=== PATIENT | male | born 1960 | race American Indian/Alaskan Native ===

== ENCOUNTER 2020-01-11 13:11 | Observation (INO) | payer MEDICAID ==
[2020-01-11] MEDS ORDERED: Sodium Chloride 0.9% 1,000 ML IV SCH ×3 (13:15→17:00)
--- NOTE | 2020-01-11 13:20 | EDM.PDOC ---
ED HPI GENERAL MEDICAL PROBLEM - General Chief Complaint: Gastrointestinal Problem Stated Complaint: [facility] Time Seen by Provider: 01/11/20 13:20 Source of Information: Reports: Patient History Limitations: Reports: No Limitations - History of Present Illness INITIAL COMMENTS - FREE TEXT/NARRATIVE: pt got up this am and he felt normal. Shortly after that he felt severe vertigo. That went away and later in the am return and was very severe. He began to vomit. He is feeling like the whole room is whirling when he opens his eyes. Onset: Today, Sudden Duration: Hour(s): Location: Reports: Head, Abdomen, Other (pt started to vomit mid morning when the vertigo go severe. ) Associated Symptoms: Reports: Nausea/Vomiting, Weakness, Other ( vertigo. ) - Related Data Allergies Allergy/AdvReac Type Severity Reaction Status Date / Time ibuprofen AdvReac Other Verified 01/11/20 13:13 Home Meds: Home Meds Aspirin [Halfprin] 81 mg PO DAILY 01/11/20 [History] ED ROS GENERAL - Review of Systems Review Of Systems: See Below Constitutional: Reports: Weakness, Decreased Appetite HEENT: Reports: Vertigo Respiratory: Reports: No Symptoms Cardiovascular: Reports: No Symptoms Endocrine: Reports: No Symptoms GI/Abdominal: Reports: Nausea, Vomiting : Reports: No Symptoms Musculoskeletal: Reports: No Symptoms ED EXAM, GI/ABD - Physical Exam Exam: See Below Text/Narrative:: pt arrived by ambulance with marked vertigo and vomiting. He had persistent vertigo. 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 He gives a history in the last week of hearloss in the left ear. Exam Limited By: No Limitations General Appearance: Alert, Moderate Distress Ears: Other ( rt drum is red and has fluid behind it, left drum has no redness but there is fluid present. ) Nose: Normal Inspection Throat/Mouth: Normal Inspection Head: Atraumatic Neck: Normal Inspection Respiratory/Chest: No Respiratory Distress Cardiovascular: Regular Rate, Rhythm, Tachycardia GI/Abdominal Exam: Other ( no tenderness present. ) (Male) Exam: Deferred Rectal (Males) Exam: Deferred Back Exam: Normal Inspection Extremities: Normal Inspection Neurological: Alert, Oriented, Normal Cognition Course - Vital Signs Last Recorded V/S: Last Vital Signs Temp 35.4 C L 01/11/20 13:15 Pulse 71 01/11/20 15:43 Resp 18 01/11/20 13:15 BP 134/87 01/11/20 15:43 Pulse Ox 96 01/11/20 14:10 - Orders/Labs/Meds Orders: Active Orders 24 hr Category Date Time Status EKG Documentation Completion [RC] ASDIRECTED Care 01/11/20 13:14 Active Sodium Chloride 0.9% [Normal Saline] 1,000 ml Med 01/11/20 13:15 Active IV ASDIRECTED Sodium Chloride 0.9% [Normal Saline] 1,000 ml Med 01/11/20 14:15 Active IV ASDIRECTED EKG 12 Lead [EK] Routine Ther 01/11/20 13:14 Ordered Medication Orders Sodium Chloride (Normal Saline) 1,000 mls @ 999 mls/hr IV ASDIRECTED NIDA Last Admin: 01/11/20 13:38 Dose: 999 mls/hr Documented by: EUGENE Sodium Chloride (Normal Saline) 1,000 mls @ 999 mls/hr IV ASDIRECTED NIDA Last Admin: 01/11/20 14:56 Dose: 999 mls/hr Documented by: [id number] Labs: Laboratory Tests 01/11/20 01/11/20 01/11/20 Range/Units 13:25 13:25 16:03 WBC 9.9 (4.5-11.0) K/uL RBC 5.71 (4.30-5.90) M/uL Hgb 16.0 H D (12.0-15.0) g/dL Hct 48.0 (40.0-54.0) % MCV 84 (80-98) fL MCH 28 (27-31) pg MCHC 33 (32-36) % Plt Count 199 (150-400) K/uL Neut % (Auto) 75 H (36-66) % Lymph % (Auto) 16 L (24-44) % [place] % (Auto) 7 H (2-6) % Eos % (Auto) 2 (2-4) % Baso % (Auto) 0 (0-1) % Sodium 141 (140-148) mmol/L Potassium 3.8 (3.6-5.2) mmol/L Chloride 105 (100-108) mmol/L Carbon Dioxide 25 (21-32) mmol/L Anion Gap 10.7 (5.0-14.0) mmol/L BUN 16 (7-18) mg/dL Creatinine 1.0 (0.8-1.3) mg/dL Est Cr Clr Drug Dosing 89.89 mL/min Estimated GFR (MDRD) > 60 (>60) Glucose 209 H (74-106) mg/dL Calcium 8.7 (8.5-10.1) mg/dL Total Bilirubin 0.6 (0.2-1.0) mg/dL AST 28 (15-37) U/L ALT 44 (12-78) U/L Alkaline Phosphatase 105 (46-116) U/L Total Protein 7.2 (6.4-8.2) g/dL Albumin 3.9 (3.4-5.0) g/dL Globulin 3.3 (2.3-3.5) g/dL Albumin/Globulin Ratio 1.2 (1.2-2.2) Urine Color Yellow (YELLOW) Urine Appearance Clear (CLEAR) Urine pH 7.0 (5.0-8.0) Ur Specific [place] 1.020 (1.008-1.030) Urine Protein Negative (NEGATIVE) mg/dL Urine Glucose (UA) 250 H (NEGATIVE) mg/dL Urine Ketones Negative (NEGATIVE) mg/dL Urine Occult Blood Negative (NEGATIVE) Urine Nitrite Negative (NEGATIVE) Urine Bilirubin Negative (NEGATIVE) Urine Urobilinogen 0.2 (0.2-1.0) EU/dL Ur Leukocyte Esterase Negative (NEGATIVE) Urine RBC Not seen (0-5) Urine WBC 0-5 (0-5) Ur Epithelial Cells Few Urine Bacteria Not seen Meds: Medications Generic Name Dose Route Start Last Admin Trade Name Freq PRN Reason Stop Dose Admin Sodium Chloride 1,000 mls @ 999 mls/hr 01/11/20 13:15 01/11/20 13:38 Normal Saline IV 999 mls/hr ASDIRECTED NIDA Administration Sodium Chloride 1,000 mls @ 999 mls/hr 01/11/20 14:15 01/11/20 14:56 Normal Saline IV 999 mls/hr ASDIRECTED NIDA Administration Discontinued Medications Generic Name Dose Route Start Last Admin Trade Name Freq PRN Reason Stop Dose Admin Ceftriaxone Sodium 1 gm/ 50 mls @ 100 mls/hr 01/11/20 14:43 01/11/20 15:06 Sodium Chloride IV 01/11/20 15:12 100 mls/hr ONETIME ONE Administration Meclizine HCl 25 mg 01/11/20 13:21 01/11/20 13:38 Antivert PO 01/11/20 13:22 25 mg ONETIME ONE Administration Meclizine HCl 25 mg 01/11/20 16:04 01/11/20 16:16 Antivert PO 01/11/20 16:05 25 mg ONETIME ONE Administration Ondansetron HCl 4 mg 01/11/20 16:04 01/11/20 16:16 Zofran IVPUSH 01/11/20 16:05 4 mg ONETIME ONE Administration - Re-Assessments/Exams Free Text/Narrative Re-Assessment/Exam: 01/11/20 17:04 cat scan of the head was normal. Departure - Departure Time of Disposition: 16:59 Disposition: Admitted As Inpatient 66 Condition: Fair Clinical Impression: Dysfunction of inner ear, Left serous otitis media, Dehydration - Discharge Information Referrals: PCP,None [Primary Care Provider] - Forms: ED Department Discharge Care Plan Goals: admi to Dr Worthy Sepsis Event Note (ED) - Focused Exam Vital Signs: Vital Signs Temp Pulse Resp BP Pulse Ox 01/11/20 15:43 71 134/87 01/11/20 14:10 75 141/83 H 96 01/11/20 13:15 35.4 C L 72 18 160/79 H 94 L 01/11/20 13:13 35.4 C L 72 18 160/79 H 94 L - My Orders Last 24 Hours: My Active Orders 01/11/20 13:14 EKG Documentation Completion [RC] ASDIRECTED EKG 12 Lead [EK] Routine 01/11/20 13:15 Sodium Chloride 0.9% [Normal Saline] 1,000 ml IV ASDIRECTED 01/11/20 14:15 Sodium Chloride 0.9% [Normal Saline] 1,000 ml IV ASDIRECTED - Assessment/Plan Last 24 Hours: My Active Orders 01/11/20 13:14 EKG Documentation Completion [RC] ASDIRECTED EKG 12 Lead [EK] Routine 01/11/20 13:15 Sodium Chloride 0.9% [Normal Saline] 1,000 ml IV ASDIRECTED 01/11/20 14:15 Sodium Chloride 0.9% [Normal Saline] 1,000 ml IV ASDIRECTED
[2020-01-11] MEDS ORDERED: Meclizine 25 MG Tab PO ONE ×2 (13:21→16:04)
--- NOTE | 2020-01-11 14:34 | CRLCT ---
INDICATION: Vertigo. TECHNIQUE: CT head without IV contrast. FINDINGS: No acute intracranial hemorrhage, edema or mass effect. Plate and screw fixation involving the floor of the right orbit, anterior wall of right maxillary sinus and medial wall of the right orbit with depression of the anterior wall of the right maxillary sinus consistent with prior fractures/trauma. Mildly displaced anterior and right nasal bone fracture could be an ununited old fracture. Clinical correlation recommended. Mild cerebral atrophy. Impression : No acute intracranial disease. Old fracture deformities involving the right medial orbit floor of the orbit as well as anterior wall of right maxillary sinus with plate and screw fixation. Mildly displaced right anterior nasal bone fracture could be an old ununited fracture. Please note that all CT scans at this facility use dose modulation, iterative reconstruction, and/or weight-based dosing when appropriate to reduce radiation dose to as low as reasonably achievable. Dictated by Chris Alcala MD @ Jan 11 2020 2:29PM Signed by Dr. Chris Alcala @ Jan 11 2020 2:33PM
[2020-01-11] MEDS ORDERED: cefTRIAXone 1 GM in Sodium Chloride 0.9% 50 ML IV ONE (14:43)
[2020-01-11] MEDS ORDERED: Ondansetron 4 MG/2 ML SDV IVPUSH ONE (16:04)
--- NOTE | 2020-01-11 18:01 | PCM.HP.2 ---
H&P History of Present Illness - General Date of Service: 01/11/20 Admit Problem/Dx: Admission Diagnosis/Problem Admission Diagnosis/Problem Vertigo Source of Information: Patient, Family, Provider, RN Notes Reviewed History Limitations: Reports: No Limitations - History of Present Illness Initial Comments - Free Text/Narative: Mr. Cowart is a 59-year-old gentleman who was admitted to observation status through the emergency department for management of vertigo with nausea and vomiting. Over the past few months he has had at least 3 other episodes of positional vertigo. This has been the worst with onset this morning. Symptoms persisted and he presented to the emergency department for further evaluation, CT scan of the head is unremarkable. He currently is unable to stand or ambulate and developed severe nausea vomiting with position changes. Has no other focal neurologic findings. - Related Data Allergies/Adverse Reactions: Allergies Allergy/AdvReac Type Severity Reaction Status Date / Time ibuprofen AdvReac Other Verified 01/11/20 13:13 Home Medications: Home Meds Aspirin [Halfprin] 81 mg PO DAILY 01/11/20 [History] Past Medical History HEENT History: Reports: None Gastrointestinal History: Reports: None Endocrine/Metabolic History: Reports: Obesity/BMI 30+ - Past Surgical History Head Surgeries/Procedures: Reports: None HEENT Surgical History: Reports: Eye Surgery, Other (See Below) Other HEENT Surgeries/Procedures: right eye socket GI Surgical History: Reports: Appendectomy Dermatological Surgical History: Reports: None Social & Family History - Tobacco Use Smoking Status *Q: Former Smoker Used Tobacco, but Quit: Yes Month/Year Tobacco Last Used: 07/29/2019 Second Hand Smoke Exposure: No - Caffeine Use Caffeine Use: Reports: Coffee, Soda, Tea - Recreational Drug Use Recreational Drug Use: No H&P Review of Systems - Review of Systems: Review Of Systems: See Below General: Reports: No Symptoms HEENT: Reports: Hearing Changes, Vertigo. Denies: Ear Pain, Eye Pain, Headaches, Sinus Congestion Pulmonary: Reports: No Symptoms Cardiovascular: Reports: No Symptoms Gastrointestinal: Reports: Nausea, Vomiting. Denies: Abdominal Pain, Black Stool, Bloody Stool, Constipation, Diarrhea, Difficulty Swallowing, Distension Genitourinary: Reports: No Symptoms Musculoskeletal: Reports: No Symptoms Skin: Reports: No Symptoms Psychiatric: Reports: No Symptoms Neurological: Reports: No Symptoms Hematologic/Lymphatic: Reports: No Symptoms Immunologic: Reports: No Symptoms Exam - Exam Exam: See Below - Vital Signs Vital Signs: Last Vital Signs Temp 95.8 F L 01/11/20 13:15 Pulse 83 01/11/20 17:19 Resp 18 01/11/20 13:15 BP 146/91 H 01/11/20 17:19 Pulse Ox 96 01/11/20 14:10 Weight: 235 lb - Exam Quality Assessment: DVT Prophylaxis General: Alert, Oriented, Cooperative, Moderate Distress HEENT: Conjunctiva Clear, Hearing Intact, Mucosa Moist & [place], Normal Nasal Septum, Posterior Pharynx Clear, Pupils Equal, Other (Right upward rotary nystagmus) Neck: Supple, Trachea Midline, +2 Carotid Pulse wo Bruit Lungs: Clear to Auscultation, Normal Respiratory Effort Cardiovascular: Regular Rate, Regular Rhythm, Normal S1, Normal S2. No: Systolic Murmur, Diastolic Murmur GI/Abdominal Exam: Soft, Non-Tender, No Organomegaly, No Distention Back Exam: Normal Inspection, Full Range of Motion Extremities: Non-Tender, No Pedal Edema Skin: Warm, Dry, Intact Neurological: Cranial Nerves Intact, Strength Equal Bilateral, Normal Speech, Normal Tone, Sensation Intact. No: Focal Deficit Neuro Extensive - Mental Status: Alert, Oriented x3, Normal Mood/Affect, Normal Cognition, Memory Intact - Patient Data Lab Results Last 24 hrs: Laboratory Results - last 24 hr 01/11/20 01/11/20 01/11/20 Range/Units 13:25 13:25 16:03 WBC 9.9 (4.5-11.0) K/uL RBC 5.71 (4.30-5.90) M/uL Hgb 16.0 H D (12.0-15.0) g/dL Hct 48.0 (40.0-54.0) % MCV 84 (80-98) fL MCH 28 (27-31) pg MCHC 33 (32-36) % Plt Count 199 (150-400) K/uL Neut % (Auto) 75 H (36-66) % Lymph % (Auto) 16 L (24-44) % [place] % (Auto) 7 H (2-6) % Eos % (Auto) 2 (2-4) % Baso % (Auto) 0 (0-1) % Sodium 141 (140-148) mmol/L Potassium 3.8 (3.6-5.2) mmol/L Chloride 105 (100-108) mmol/L Carbon Dioxide 25 (21-32) mmol/L Anion Gap 10.7 (5.0-14.0) mmol/L BUN 16 (7-18) mg/dL Creatinine 1.0 (0.8-1.3) mg/dL Est Cr Clr Drug Dosing 89.89 mL/min Estimated GFR (MDRD) > 60 (>60) Glucose 209 H (74-106) mg/dL Calcium 8.7 (8.5-10.1) mg/dL Total Bilirubin 0.6 (0.2-1.0) mg/dL AST 28 (15-37) U/L ALT 44 (12-78) U/L Alkaline Phosphatase 105 (46-116) U/L Total Protein 7.2 (6.4-8.2) g/dL Albumin 3.9 (3.4-5.0) g/dL Globulin 3.3 (2.3-3.5) g/dL Albumin/Globulin Ratio 1.2 (1.2-2.2) Urine Color Yellow (YELLOW) Urine Appearance Clear (CLEAR) Urine pH 7.0 (5.0-8.0) Ur Specific Chemult 1.020 (1.008-1.030) Urine Protein Negative (NEGATIVE) mg/dL Urine Glucose (UA) 250 H (NEGATIVE) mg/dL Urine Ketones Negative (NEGATIVE) mg/dL Urine Occult Blood Negative (NEGATIVE) Urine Nitrite Negative (NEGATIVE) Urine Bilirubin Negative (NEGATIVE) Urine Urobilinogen 0.2 (0.2-1.0) EU/dL Ur Leukocyte Esterase Negative (NEGATIVE) Urine RBC Not seen (0-5) Urine WBC 0-5 (0-5) Ur Epithelial Cells Few Urine Bacteria Not seen Result Diagrams: 01/11/20 13:25 01/11/20 13:25 Sepsis Event Note - Evaluation Sepsis Screening Result: No Definite Risk - Focused Exam Vital Signs: Vital Signs Temp Pulse Resp BP Pulse Ox 01/11/20 17:19 83 146/91 H 01/11/20 15:43 71 134/87 01/11/20 14:10 75 141/83 H 96 01/11/20 13:15 95.8 F L 72 18 160/79 H 94 L 01/11/20 13:13 95.8 F L 72 18 160/79 H 94 L *Q Meaningful Use (ADM) - VTE Risk Assess *Q Each Risk Factor Represents 1 Point: Age 41 - 59 years, Obesity ( BMI > 25 kg/ m2) Total Score 1 Point Risk Factors: 2 Each Risk Factor Represents 2 Points: None Total Score 2 Point Risk Factors: 0 Each Risk Factor Represents 3 Points: None Total Score 3 Point Risk Factors: 0 Each Risk Factor Represents 5 Points: None Total Score 5 Point Risk Factors: 0 Venous Thromboembolism Risk Factor Score *Q: 2 Problem List Initiated/Reviewed/Updated: Yes Orders Last 24hrs: Active Orders 24 hr Category Date Time Status Patient Status Manage Transfer [TRANSFER] Routine ADT 01/11/20 17:50 Ordered EKG Documentation Completion [RC] ASDIRECTED Care 01/11/20 13:14 Active Sodium Chloride 0.9% [Normal Saline] 1,000 ml Med 01/11/20 13:15 Active IV ASDIRECTED Sodium Chloride 0.9% [Normal Saline] 1,000 ml Med 01/11/20 14:15 Active IV ASDIRECTED Sodium Chloride 0.9% [Normal Saline] 1,000 ml Med 01/11/20 17:00 Active IV ASDIRECTED Resuscitation Status Routine Resus Stat 01/11/20 17:52 Ordered EKG 12 Lead [EK] Routine Ther 01/11/20 13:14 Ordered Medication Orders Sodium Chloride (Normal Saline) 1,000 mls @ 999 mls/hr IV ASDIRECTED ON LICENSE OF [facility] Last Admin: 01/11/20 13:38 Dose: 999 mls/hr Documented by: EUGENE Sodium Chloride (Normal Saline) 1,000 mls @ 999 mls/hr IV ASDIRECTED ON LICENSE OF [facility] Last Admin: 01/11/20 14:56 Dose: 999 mls/hr Documented by: GEO Sodium Chloride (Normal Saline) 1,000 mls @ 200 mls/hr IV ASDIRECTED ON LICENSE OF [facility] Assessment/Plan Comment:: ASSESSMENT AND PLAN BENIGN POSITIONAL VERTIGO-he has had previous episodes of this, but not this severe in the past. Currently unable to stand or walk, with severe nausea and vomiting. -Fluids for hydration -Medication for nausea as needed -If feeling somewhat better attempt otolith repositioning maneuvers in a.m. MAINTENANCE ISSUES -DVT prophylaxis; Lovenox 40 mg subcu daily -GI prophylaxis; not indicated -Nieves catheter; not indicated -Nutrition; regular diet -Nicotine dependence; not required CODE STATUS-FULL CODE ADMISSION STATUS-this patient will be admitted to observation status, expect no more than a one night hospital stay for evaluation and management of problems as outlined above. DISPOSITION-anticipate discharge to home after the hospital stay. PRIMARY CARE PROVIDER- - Mortality Measure Prognosis:: Good
[2020-01-11] MEDS ORDERED: Ondansetron 4 MG/2 ML SDV IV PRN (18:28)
[2020-01-11] MEDS ORDERED: Sodium Chloride 0.9% 10 ML Syringe FLUSH PRN (18:28)
[2020-01-11] MEDS ORDERED: Acetaminophen 325 MG Tab PO PRN (18:28)
[2020-01-11] MEDS ORDERED: LORazepam 2 MG/ML SDV IV PRN (18:28)
[2020-01-11] MEDS ORDERED: Polyethylene Glycol 3350 Powder 17 GM Packet PO PRN (18:28)
[2020-01-11] MEDS: Sodium Chloride 0.9% 1,000 ML IV SCH (19:15)
[2020-01-11] MEDS ORDERED: Enoxaparin 40 MG/0.4 ML Syringe SUBCUT SCH (21:00)
[2020-01-12] MEDS: Sodium Chloride 0.9% 1,000 ML IV SCH (02:39)
[2020-01-12] MEDS ORDERED: Aspirin 81 MG Tab.EC PO SCH (09:00)
--- NOTE | 2020-01-12 10:56 | PCM.DCSUM1 ---
Discharge Summary - Hospital Course Brief History: Mr. Cowart is a 59-year-old gentleman who was admitted through the emergency department to observation status with vertigo, nausea vomiting, and dehydration. - Discharge Data Discharge Date: 01/12/20 Discharge Disposition: Home, Self-Care 01 Condition: Fair - Referral to Home Health Primary Care Physician: PCP None - Discharge Diagnosis/Problem(s) (1) Nausea & vomiting SNOMED Code(s): 04571459 ICD Code: R11.2 - NAUSEA WITH VOMITING, UNSPECIFIED Status: Acute Current Visit: Yes (2) Benign positional vertigo SNOMED Code(s): 393455360 ICD Code: H81.10 - BENIGN PAROXYSMAL VERTIGO, UNSPECIFIED EAR Status: Acute Current Visit: Yes (3) Dehydration SNOMED Code(s): 22109148 ICD Code: E86.0 - DEHYDRATION Status: Acute Current Visit: Yes - Patient Summary/Data Hospital Course: Mr. Cowart is a 59-year-old gentleman who was admitted to observation status through the emergency department for management of vertigo with nausea and vomiting, and dehydration. Over the past few months he has had at least 3 other episodes of positional vertigo. This has been the worst with onset this morning. Symptoms persisted and he presented to the emergency department for further evaluation, CT scan of the head is unremarkable. He currently is unable to stand or ambulate and developed severe nausea vomiting with position changes. Has no other focal neurologic findings. On admission he was continued on IV fluids for hydration as well as medication as needed for management of nausea and vomiting. By the following morning he had improved significantly with resolution of vertigo, nausea and vomiting. He was instructed on otolith repositioning maneuvers and will be given written information concerning the s andres. Follow-up appointment will be scheduled with physical therapy for more instruction on repositioning maneuvers. Activity will be as tolerated and he will resume his usual diet. Follow-up appointment will be scheduled with Dr. Blake within 1 week as well as the appointment with physical therapy. - Patient Instructions Diet: Usual Diet as Tolerated Activity: As Tolerated Other/Special Instructions: Please schedule follow-up appointment with Dr. Blake within 1 week. Please schedule physical therapy appointment for evaluation and instruction concerning benign positional vertigo and otolith repositioning maneuvers. - Discharge Plan *PRESCRIPTION DRUG MONITORING PROGRAM REVIEWED*: Not Applicable *COPY OF PRESCRIPTION DRUG MONITORING REPORT IN PATIENT TICO: Not Applicable Home Medications: Home Meds Aspirin [Halfprin] 81 mg PO DAILY 01/11/20 [History] Patient Handouts: Vertigo, [id number], How to Perform the Kwabena Maneuver, Dizziness, [id number] - Discharge Summary/Plan Comment DC Time >30 min.: No - Patient Data Vitals - Most Recent: Last Vital Signs Temp 98 F 01/12/20 08:00 Pulse 76 01/12/20 08:00 Resp 18 01/12/20 08:00 BP 120/73 01/12/20 08:00 Pulse Ox 95 01/12/20 08:00 Weight - Most Recent: 208 lb I&O - Last 24 hours: Intake & Output 01/11/20 01/12/20 01/12/20 22:59 06:59 14:59 Intake Total 1928 450 Balance 1928 450 Lab Results - Last 24 hrs: Laboratory Results - last 24 hr 01/11/20 01/11/20 01/11/20 Range/Units 13:25 13:25 16:03 WBC 9.9 (4.5-11.0) K/uL RBC 5.71 (4.30-5.90) M/uL Hgb 16.0 H D (12.0-15.0) g/dL Hct 48.0 (40.0-54.0) % MCV 84 (80-98) fL MCH 28 (27-31) pg MCHC 33 (32-36) % Plt Count 199 (150-400) K/uL Neut % (Auto) 75 H (36-66) % Lymph % (Auto) 16 L (24-44) % [place] % (Auto) 7 H (2-6) % Eos % (Auto) 2 (2-4) % Baso % (Auto) 0 (0-1) % Sodium 141 (140-148) mmol/L Potassium 3.8 (3.6-5.2) mmol/L Chloride 105 (100-108) mmol/L Carbon Dioxide 25 (21-32) mmol/L Anion Gap 10.7 (5.0-14.0) mmol/L BUN 16 (7-18) mg/dL Creatinine 1.0 (0.8-1.3) mg/dL Est Cr Clr Drug Dosing 89.89 mL/min Estimated GFR (MDRD) > 60 (>60) Glucose 209 H (74-106) mg/dL Calcium 8.7 (8.5-10.1) mg/dL Total Bilirubin 0.6 (0.2-1.0) mg/dL AST 28 (15-37) U/L ALT 44 (12-78) U/L Alkaline Phosphatase 105 (46-116) U/L Total Protein 7.2 (6.4-8.2) g/dL Albumin 3.9 (3.4-5.0) g/dL Globulin 3.3 (2.3-3.5) g/dL Albumin/Globulin Ratio 1.2 (1.2-2.2) Urine Color Yellow (YELLOW) Urine Appearance Clear (CLEAR) Urine pH 7.0 (5.0-8.0) Ur Specific [place] 1.020 (1.008-1.030) Urine Protein Negative (NEGATIVE) mg/dL Urine Glucose (UA) 250 H (NEGATIVE) mg/dL Urine Ketones Negative (NEGATIVE) mg/dL Urine Occult Blood Negative (NEGATIVE) Urine Nitrite Negative (NEGATIVE) Urine Bilirubin Negative (NEGATIVE) Urine Urobilinogen 0.2 (0.2-1.0) EU/dL Ur Leukocyte Esterase Negative (NEGATIVE) Urine RBC Not seen (0-5) Urine WBC 0-5 (0-5) Ur Epithelial Cells Few Urine Bacteria Not seen Med Orders - Current: Current Medications Acetaminophen (Tylenol) 650 mg PO Q4H PRN PRN Reason: Pain (Mild 1-3)/fever Aspirin (Halfprin) 81 mg PO DAILY [facility] Last Admin: 01/12/20 08:15 Dose: 81 mg Documented by: Enoxaparin Sodium (Lovenox) 40 mg SUBCUT BEDTIME [facility] Last Admin: 01/11/20 21:01 Dose: 40 mg Documented by: Sodium Chloride (Normal Saline) 1,000 mls @ 125 mls/hr IV ASDIRECTED [facility] Last Admin: 01/12/20 02:39 Dose: 125 mls/hr Documented by: Lorazepam (Ativan) 0.5 mg IV Q2H PRN PRN Reason: Nausea/Vomiting Ondansetron HCl (Zofran) 4 mg IV Q4H PRN PRN Reason: Nausea/Vomiting Polyethylene Glycol (Miralax) 17 gm PO DAILY PRN PRN Reason: Constipation Sodium Chloride (Saline Flush) 10 ml FLUSH ASDIRECTED PRN PRN Reason: Keep Vein Open Discontinued Medications Sodium Chloride (Normal Saline) 1,000 mls @ 999 mls/hr IV ASDIRECTED [facility] Last Admin: 01/11/20 13:38 Dose: 999 mls/hr Documented by: Sodium Chloride (Normal Saline) 1,000 mls @ 999 mls/hr IV ASDIRECTED [facility] Last Admin: 01/11/20 14:56 Dose: 999 mls/hr Documented by: Ceftriaxone Sodium 1 gm/ (Sodium Chloride) 50 mls @ 100 mls/hr IV ONETIME ONE Stop: 01/11/20 15:12 Last Admin: 01/11/20 15:06 Dose: 100 mls/hr Documented by: Sodium Chloride (Normal Saline) 1,000 mls @ 200 mls/hr IV ASDIRECTED [facility] Meclizine HCl (Antivert) 25 mg PO ONETIME ONE Stop: 01/11/20 13:22 Last Admin: 01/11/20 13:38 Dose: 25 mg Documented by: Meclizine HCl (Antivert) 25 mg PO ONETIME ONE Stop: 01/11/20 16:05 Last Admin: 01/11/20 16:16 Dose: 25 mg Documented by: Ondansetron HCl (Zofran) 4 mg IVPUSH ONETIME ONE Stop: 01/11/20 16:05 Last Admin: 01/11/20 16:16 Dose: 4 mg Documented by: - Exam General: Reports: Alert, Oriented, Cooperative, No Acute Distress Lungs: Reports: Clear to Auscultation, Normal Respiratory Effort Cardiovascular: Reports: Regular Rate, Regular Rhythm, No Murmurs GI/Abdominal Exam: Soft, Non-Tender, No Organomegaly, No Distention
== END 2020-01-12 12:30 | disposition home or self-care (01) ==
LOC: JP.ED 13:11 → JP.MS 17:50
PROVIDERS: ADMIT Hospitalist; ATTEND Hospitalist
DX: H81.10 Benign paroxysmal vertigo, unspecified ear (principal); E86.0 Dehydration; H65.92 Unspecified nonsuppurative otitis media, left ear; E66.9 Obesity, unspecified; Z88.6 Allergy status to analgesic agent; Z79.82 Long term (current) use of aspirin; Z87.891 Personal history of nicotine dependence; Z68.28 Body mass index [BMI] 28.0-28.9, adult
CPT/HCPCS: 36415; 70450; 80053; 81001; 85025; 93005; 93010; 96361; 96365; 96372; 96375; 99285; A9270; G0378; J0696; J1650; J2405; J7030; J7050; 99217; 99219

== ENCOUNTER 2022-12-17 11:57 | Emergency (ER) | payer MEDICAID ==
[2022-12-17 12:53] LABS: BASOPHILS ABSOLUTE AUTO 0.04 K/uL (0.00-0.10); BASOPHILS PERCENT AUTO 0.4 % (0.1-1.3); EOSINOPHILS ABSOLUTE AUTO 0.11 K/uL (0.00-0.40); EOSINOPHILS PERCENT AUTO 1.2 % (0.0-5.4); HEMATOCRIT 46.9 % (38.4-49.7); HEMOGLOBIN 16.4 g/dL (12.9-16.9); IMMATURE GRAN ABSOLUTE AUTO 0.03 K/uL (0.00-0.23); IMMATURE GRAN PERCENT AUTO 0.3 % (0.0-0.7); LYMPHOCYTES ABSOLUTE AUTO 1.99 K/uL (0.8-3.3); LYMPHOCYTES PERCENT AUTO 21.8 % (11.4-47.7); MEAN CORPUSCULAR HEMOGLOBIN 29.1 pg (31.6-35.5); MEAN CORPUSCULAR VOLUME 83.2 fL (81.4-99.0); MONOCYTES ABSOLUTE AUTO 0.58 K/uL (0.20-0.90); MONOCYTES PERCENT AUTO 6.4 % (3.3-12.6); NEUTROPHILS ABSOLUTE AUTO 6.38 K/uL (1.0-7.6); NEUTROPHILS PERCENT AUTO 69.9 % (40.0-78.1); PLATELET COUNT,PLT 214 K/uL (130-375); RED BLOOD CELL COUNT 5.64 M/uL (4.14-5.76); WHITE BLOOD CELL COUNT,WBC 9.1 K/uL (3.2-11.0)
[2022-12-17 13:14] LABS: CALCIUM 9.8 mg/dL (8.5-10.1); CREATININE 0.8 mg/dL (0.8-1.3); EST CRCL DRUG DOSING (CG) 108.2 mL/min; TROPONIN I HIGH SENSITIVITY 4.1 pg/mL (<=60.3)
== END 2022-12-17 14:06 | disposition home or self-care (01) ==
LOC: JP.ED 11:57
DX: K21.9 Gastro-esophageal reflux disease without esophagitis (principal); E11.9 Type 2 diabetes mellitus without complications; E66.9 Obesity, unspecified; Z68.23 Body mass index [BMI] 23.0-23.9, adult; Z87.891 Personal history of nicotine dependence; Z88.6 Allergy status to analgesic agent; Z79.82 Long term (current) use of aspirin; Z79.899 Other long term (current) drug therapy
CPT/HCPCS: 36415; 80048; 84484; 85025; 85379; 99284

== ENCOUNTER 2023-12-02 20:39 | Emergency (ER) | payer MEDICAID ==
[2023-12-02 21:12] LABS: BASOPHILS ABSOLUTE AUTO 0.03 K/uL (0.00-0.10); BASOPHILS PERCENT AUTO 0.4 % (0.1-1.3); EOSINOPHILS ABSOLUTE AUTO 0.25 K/uL (0.00-0.40); EOSINOPHILS PERCENT AUTO 3.2 % (0.0-5.4); HEMATOCRIT 42.7 % (38.4-49.7); HEMOGLOBIN 15.2 g/dL (12.9-16.9); IMMATURE GRAN PERCENT AUTO 0.1 % (0.0-0.7); LYMPHOCYTES ABSOLUTE AUTO 2.02 K/uL (0.8-3.3); LYMPHOCYTES PERCENT AUTO 25.7 % (11.4-47.7); MEAN CORPUSCULAR HGB CONC 35.6 g/dL (31.6-35.5); MEAN CORPUSCULAR VOLUME 81.5 fL (81.4-99.0); MONOCYTES ABSOLUTE AUTO 0.58 K/uL (0.20-0.90); MONOCYTES PERCENT AUTO 7.4 % (3.3-12.6); NEUTROPHILS ABSOLUTE AUTO 4.96 K/uL (1.0-7.6); NEUTROPHILS PERCENT AUTO 63.2 % (40.0-78.1); PLATELET COUNT,PLT 186 K/uL (130-375); RED BLOOD CELL COUNT 5.24 M/uL (4.14-5.76); WHITE BLOOD CELL COUNT,WBC 7.9 K/uL (3.2-11.0)
[2023-12-02 21:13] LABS: IMMATURE GRAN ABSOLUTE AUTO 0.01 K/uL (0.00-0.23)
[2023-12-02 21:36] LABS: CALCIUM 7.8 mg/dL (8.5-10.1); CREATININE 1.1 mg/dL (0.8-1.3); EST CRCL DRUG DOSING (CG) 77.68 mL/min; POTASSIUM,K 4.5 mmol/L (3.6-5.2); TROPONIN I HIGH SENSITIVITY 6.3 pg/mL (<=60.3)
[2023-12-02 21:37] LABS: ANION GAP 13.5 mmol/L (5.0-14.0)
[2023-12-02] MEDS ORDERED: Glucagon,Human Recombinant 1 MG Vial IM PRN (22:03)
[2023-12-02] MEDS ORDERED: 50% Dextrose in Water 50 ML Syringe IVPUSH PRN (22:03)
[2023-12-02] MEDS: Insulin Glargine,Human Rec. Analog 100 Units/ML 3 ML Pen SUBCUT ONE (22:20)
[2023-12-03] MEDS ORDERED: Insulin Glargine,Human Rec. Analog 100 Units/ML 3 ML Pen SUBCUT ONE (22:05)
== END 2023-12-02 23:02 | disposition home or self-care (01) ==
LOC: JP.ED 20:39
DX: R07.89 Other chest pain (principal); E11.65 Type 2 diabetes mellitus with hyperglycemia; E78.00 Pure hypercholesterolemia, unspecified; E66.9 Obesity, unspecified; Z79.82 Long term (current) use of aspirin; Z79.4 Long term (current) use of insulin; Z88.6 Allergy status to analgesic agent; Z68.23 Body mass index [BMI] 23.0-23.9, adult
CPT/HCPCS: 36415; 71045; 80048; 82009; 84484; 85025; 85379; 99285; J1815